=== PATIENT | female | born 2000 | race American Indian/Alaskan Native ===

== ENCOUNTER 2019-03-18 08:26 | Emergency (ER) | payer SELFPAY ==
[2019-03-18 08:35] VITALS: BP 130/75
[2019-03-18] MEDS ORDERED: PROTONIX IV ONE (08:58)
[2019-03-18] MEDS ORDERED: LEVSIN SL SL ONE (08:58)
[2019-03-18] MEDS ORDERED: LACTATED RINGERS 1,000 ML IV ONE (08:58)
[2019-03-18] MEDS ORDERED: ZOFRAN IV ONE (08:58)
--- NOTE | 2019-03-18 09:15 | Emergency Department Report ---
ED Abdominal Pain HPI - General Chief Complaint: Abdominal Pain Stated Complaint: STOMACH PAIN Time Seen by Provider: 03/18/19 08:57 Source: patient Mode of arrival: Ambulatory Limitations: No Limitations - History of Present Illness Initial Comments: Pt c/o abd pain x a couple days associated n/v, some diarrhea states noticed a streak of blood in the vomit as well no black stool has hx of ulcer and states this feels similar no complaints MD Complaint: abdominal pain -: Gradual, days(s) (2) Location: diffuse Radiation: none Migration to: no migration Severity: moderate Severity scale (0 -10): 5 Quality: cramping, aching Consistency: constant Improves With: nothing Worsens With: nothing Associated Symptoms: nausea, vomiting, diarrhea. denies: chills, dysuria - Related Data Previous Rx's Medication Instructions Recorded Last Taken Type Hyoscyamine Subl [Levsin Sl] 0.125 mg SL Q6HR PRN #12 tablet 03/18/19 Unknown Rx Pantoprazole [Protonix] 40 mg PO QDAY #30 tablet 03/18/19 Unknown Rx Promethazine [Phenergan] 25 mg PO Q6HR PRN #12 tab 03/18/19 Unknown Rx Allergies Allergy/AdvReac Type Severity Reaction Status Date / Time No Known Allergies Allergy Unverified 03/18/19 08:28 ED Review of Systems ROS: Stated complaint: STOMACH PAIN Other details as noted in HPI Comment: All other systems reviewed and negative Constitutional: denies: chills, fever Eyes: denies: eye pain, eye discharge, vision change ENT: denies: ear pain, throat pain Respiratory: denies: cough, shortness of breath, wheezing Cardiovascular: denies: chest pain, palpitations Endocrine: no symptoms reported Gastrointestinal: abdominal pain, nausea, vomiting, diarrhea Genitourinary: denies: urgency, dysuria, discharge Musculoskeletal: denies: back pain, joint swelling, arthralgia Skin: denies: rash, lesions Neurological: denies: headache, weakness, paresthesias Psychiatric: denies: anxiety, depression Hematological/Lymphatic: denies: easy bleeding, easy bruising ED Past Medical Hx - Past Medical History Previous Medical History?: No - Surgical History Past Surgical History?: No - Social History Smoking Status: Never Smoker Substance Use Type: None - Medications Home Medications: Home Medications Medication Instructions Recorded Confirmed Last Taken Type Hyoscyamine Subl [Levsin Sl] 0.125 mg SL Q6HR PRN #12 tablet 03/18/19 Unknown Rx Pantoprazole [Protonix] 40 mg PO QDAY #30 tablet 03/18/19 Unknown Rx Promethazine [Phenergan] 25 mg PO Q6HR PRN #12 tab 03/18/19 Unknown Rx ED Physical Exam - General Limitations: No Limitations General appearance: alert, in no apparent distress - Head Head exam: Present: atraumatic, normocephalic - Eye Eye exam: Present: normal appearance - ENT ENT exam: Present: normal exam, mucous membranes moist - Neck Neck exam: Present: normal inspection, full ROM. Absent: tenderness - Respiratory Respiratory exam: Present: normal lung sounds bilaterally. Absent: respiratory distress - Cardiovascular Cardiovascular Exam: Present: regular rate, normal rhythm. Absent: systolic murmur, diastolic murmur, rubs, gallop - GI/Abdominal GI/Abdominal exam: Present: soft, tenderness (minimal, diffuse ), normal bowel sounds. Absent: distended, guarding, rebound - Extremities Exam Extremities exam: Present: normal inspection - Back Exam Back exam: Present: normal inspection - Neurological Exam Neurological exam: Present: alert, oriented X3 - Psychiatric Psychiatric exam: Present: normal affect, normal mood - Skin Skin exam: Present: warm, dry, intact, normal color. Absent: rash ED Course Vital Signs 03/18/19 08:32 Temperature 97.7 F Pulse Rate 80 Respiratory 16 Rate Blood Pressure 130/75 [Left] O2 Sat by Pulse 98 Oximetry - Reevaluation(s) Reevaluation #1: 03/18/19 10:03 feeling some better labs benign repeat exam- ttp RUQ NO RLQ ttp will get US, UA pending Reevaluation #2: 03/18/19 12:00 feeling better no vomiting here repeat exam benign ED Medical Decision Making - Lab Data Result diagrams: 03/18/19 09:07 03/18/19 09:07 - Medical Decision Making abd pain, nvd exam overall is benign will check labs, given IVF, levsin, zofran reassess labs, US unrevealing recommend PCP fu and GI - Differential Diagnosis gastroenteritis, PUD, pancreatitis, less likely surgical process Critical care attestation.: If time is entered above; I have spent that time in minutes in the direct care of this critically ill patient, excluding procedure time. ED Disposition Clinical Impression: Abdominal pain Qualifiers: Abdominal location: unspecified location Qualified Code(s): R10.9 - Unspecified abdominal pain Disposition: TO HOME OR SELFCARE Is pt being admited?: No Condition: Good Instructions: Abdominal Pain (ED) Prescriptions: Hyoscyamine Subl [Levsin Sl] 0.125 mg SL Q6HR PRN #12 tablet PRN Reason: abdominal cramping Promethazine [Phenergan] 25 mg PO Q6HR PRN #12 tab PRN Reason: Nausea Pantoprazole [Protonix] 40 mg PO QDAY #30 tablet [facility]: [facility] [Primary Care Provider] - 3-5 Days MANA BURCIAGA MD [Staff Physician] - 3-5 Days Time of Disposition: 12:02
[2019-03-18 09:29] LABS: Basophils % (Auto) 1.3 % (0.0-1.8); Eosinophils # (Auto) 0.3 K/mm3 (0.0-0.4); Eosinophils % (Auto) 9.6 % (0.0-4.3); Hematocrit 37.9 % (30.3-42.9); Hemoglobin 12.4 gm/dl (10.1-14.3); Lymphocytes # (Auto) 1.3 K/mm3 (1.2-5.4); Lymphocytes % (Auto) 40.8 % (13.4-35.0); Mean Corpuscular HGB Conc 33 % (30-34); Mean Corpuscular Volume 85 fl (79-97); Monocytes # (Auto) 0.3 K/mm3 (0.0-0.8); Monocytes % (Auto) 9.8 % (0.0-7.3); Platelet Count 227 K/mm3 (140-440); Red Blood Count 4.45 M/mm3 (3.65-5.03); Red Cell Distribution Width 14.4 % (13.2-15.2)
[2019-03-18 09:50] LABS: Alanine Aminotransferase 16 units/L (7-56); Albumin 4.1 g/dL (3.9-5); BUN/Creatinine Ratio 10; Blood Urea Nitrogen 7 mg/dL (7-17); Calcium 9.3 mg/dL (8.4-10.2); Hemolysis Index 15
[2019-03-18] MEDS ORDERED: TORADOL IV ONE (10:02)
[2019-03-18 10:32] LABS: Bilirubin,Urine NEG (Negative); Blood,Urine NEG (Negative); Color,Urine Colorless (Yellow); Protein,Urine <15 mg/dL mg/dL (Negative); RBC,Urine < 1.0 /HPF (0.0-6.0); Urobilinogen,Urine < 2.0 mg/dL (<2.0); WBC,Urine < 1.0 /HPF (0.0-6.0)
--- NOTE | 2019-03-18 11:53 | Ultrasound Report ---
PROCEDURE: US ABDOMEN LIMITED TECHNIQUE: Ultrasound imaging of the right upper quadrant was performed. HISTORY: ruq pain COMPARISONS: None. FINDINGS: Liver: The liver is normal in echogenicity. No masses. No intrahepatic biliary ductal dilation. Gallbladder/biliary system: No cholelithiasis, gallbladder wall thickening or pericholecystic fluid. The common bile duct measures 1 millimeters. Right kidney: The right kidney is normal in echogenicity without hydronephrosis, cyst, mass or calcif ication. Right kidney length: 10.1 centimeters. Aorta/IVC: The visualized portions of the abdominal aorta and IVC demonstrate normal caliber. Free fluid: None. IMPRESSION: Normal right upper quadrant ultrasound. This document is electronically signed by Mikki Lyn., Mar 18 2019 11:51:21 AM ET
== END 2019-03-18 12:31 | disposition home or self-care (01) ==
LOC: ED 08:26
DX: R10.84 Generalized abdominal pain (principal); R11.2 Nausea with vomiting, unspecified; R19.7 Diarrhea, unspecified
CPT/HCPCS: 36415; 76705; 80053; 81001; 83690; 84703; 85025; 96361; 96374; 96375; 99284; J1885; J2405